=== PATIENT | female | born 1950 | race Caucasian/White ===

== ENCOUNTER → 2017-02-11 | Outpatient (CLI) | payer OTHER ==
--- NOTE | 2017-02-11 15:32 | DIAGNOSTIC IMAGING REPORT ---
LEFT LOWER EXTREMITY VENOUS DOPPLER CLINICAL HISTORY: EDEMA OF LEFT LOWER EXTREMITY COMPARISON STUDY: No previous studies for comparison. TECHNIQUE: Sonography of the deep venous system of the left lower extremity was performed. Compression and augmentation were evaluated. FINDINGS: The common femoral, superficial femoral and popliteal veins were compressible. Augmentation was normal. Flow was shown within the deep calf vessels. IMPRESSION: No evidence of deep venous thrombus within the left lower extremity. Electronically signed by: Roshan Wilkins M.D. 02/11/2017 3:31 PM Dictated Date/Time: 02/11/2017 3:31 PM
== END | disposition home or self-care (01) ==
LOC: C.ULTR 14:57
PROVIDERS: ATTEND Physician Assistant Medical
DX: R60.0 Localized edema (principal)